=== PATIENT | male | born 1970 | race American Indian/Alaskan Native ===

== ENCOUNTER 2022-12-15 12:44 | Emergency (ER) | payer SELFPAY ==
[2022-12-15 14:33] LABS: BASOPHILS ABSOLUTE AUTO 0.04 K/mm3 (0.01-0.08); BASOPHILS PERCENT AUTO 0.4 % (0.1-1.2); EOSINOPHILS ABSOLUTE AUTO 0.01 K/mm3 (0.04-0.54); EOSINOPHILS PERCENT AUTO 0.1 (0.8-7.0); HEMATOCRIT 33.1 % (40.1-51.0); HEMOGLOBIN 10.1 gm/dl (13.7-17.5); IMMATURE GRAN ABSOLUTE AUTO 0.01 K/mm3 (0.00-0.10); IMMATURE GRAN PERCENT AUTO 0.1 % (<=1.0); LYMPHOCYTES ABSOLUTE AUTO 2.09 K/mm3 (1.32-3.57); LYMPHOCYTES PERCENT AUTO 22.5 % (21.8-53.1); MEAN CORPUSCULAR HEMOGLOBIN 23.1 pg (25.7-32.2); MEAN CORPUSCULAR HGB CONC 30.5 g/dl (32.2-35.5); MEAN CORPUSCULAR VOLUME 75.6 fl (79.0-92.2); MEAN PLATELET VOLUME 9.5 fl (9.4-12.3); MONOCYTES PERCENT AUTO 12.9 % (5.3-12.2); NEUTROPHILS ABSOLUTE AUTO 5.92 K/mm3 (1.78-5.38); PLATELET COUNT,PLT 595 K/mm3 (163-337); RED BLOOD CELL COUNT 4.38 M/mm3 (4.63-6.08); WHITE BLOOD CELL COUNT,WBC 9.27 K/mm3 (4.23-9.07)
[2022-12-15] MEDS ORDERED: Gadobenate Dimeglumine 529 MG/ML 20 ML SDV IVPUSH ONE (14:48)
[2022-12-15 15:00] LABS: ALBUMIN 3.6 g/dl (3.4-5.0); ANION GAP 11.7 (5-15); BILIRUBIN TOTAL 0.2 mg/dL (0.2-1.0); BUN/CREATININE RATIO 14.3 (14-18); CALCIUM 8.8 mg/dL (8.5-10.1); CREATININE 1.4 mg/dL (0.7-1.3); EST CRCL DRUG DOSING (CG) 59.71 mL/min; POTASSIUM,K 4.7 mEq/L (3.5-5.1); PROTEIN TOTAL,TP 7.3 g/dl (6.4-8.2)
[2022-12-15] MEDS ORDERED: Sodium Chloride 0.9% 10 ML Syringe FLUSH SCH (15:00)
== END 2022-12-15 17:08 | disposition home or self-care (01) ==
LOC: JD.ED 12:44
DX: M54.50 Low back pain, unspecified (principal); Z86.16 Personal history of COVID-19
CPT/HCPCS: 36415; 72100; 72100-26; 72158; 72158-26; 80053; 85025; 99284; A9577; J3490